=== PATIENT | female | born 1955 | race Caucasian/White ===

== ENCOUNTER → 2017-11-22 | Outpatient (CLI) | payer BC, OTHER ==
[2017-11-22 16:00] LABS: BASOPHILS # (AUTO) 0.05 x10^3/uL (0-0.1); BASOPHILS % (AUTO) 1 % (0-1); EOSINOPHILS # (AUTO) 0.18 x10^3/uL (0-0.4); EOSINOPHILS % (AUTO) 2 % (1-7); LYMPHOCYTES # (AUTO) 2.49 x10^3/uL (1-3.4); LYMPHOCYTES % (AUTO) 32 % (22-44); MD NO; MEAN CORPUSCULAR HEMOGLOBIN 31.4 pg (27.0-34.8); MEAN CORPUSCULAR HGB CONC 34.1 g/dL (32.4-35.8); MEAN PLATELET VOLUME 6.8 fL (7.4-10.4); MONOCYTES # (AUTO) 0.56 x10^3/uL (0.2-0.8); MONOCYTES % (AUTO) 7 % (2-9); NEUTROPHILS # (AUTO) 4.59 x10^3/uL (1.8-6.8); NEUTROPHILS % (AUTO) 58 % (42-75); PLATELET COUNT 328 x10^3/uL (130-400); RED BLOOD COUNT 4.21 x10^6/uL (3.82-5.3); RED CELL DISTRIBUTION WIDTH 13.6 % (9.6-15.2)
[2017-11-22 16:11] LABS: ALBUMIN 3.9 g/dL (3.4-5.0); ANION GAP 7 mmol/L (5-15); CHLORIDE 101 mmol/L (98-107)
[2017-11-22 16:30] LABS: ALANINE AMINOTRANSFERASE 32 U/L (12-78); ALKALINE PHOSPHATASE 101 U/L (45-117); BILIRUBIN,TOTAL 0.8 mg/dL (0.2-1.0); CREATININE 0.86 mg/dL (0.55-1.02); TOTAL PROTEIN 7.4 g/dL (6.4-8.2)
[2017-11-22 16:57] LABS: PROTHROMBIN TIME 10.3 Seconds (9.6-11.5)
== END | disposition home or self-care (01) ==
LOC: STAR 14:44
PROVIDERS: ATTEND Specialist
DX: Z01.811 Encounter for preprocedural respiratory examination (principal); R19.00 Intra-abdominal and pelvic swelling, mass and lump, unspecified site
CPT/HCPCS: 36415; 71046; 80053; 85025; 85610; 85730; 93005

== ENCOUNTER 2017-12-02 07:02 | Inpatient (IN) | payer BC, OTHER ==
[~2017-12-02] VITALS: Ht 160 cm; Wt 88.2 kg
[~2017-12-02 07:02] MED LIST: CYAN25003 PO; LEVO75TA5 PO; MILN25TA PO; MILN50TA PO; MULT1TAB60 PO; POLY17PO5 PO; S-AD200T5 PO; SIMV40TA3 PO; TELM1TAB25 PO; VANIQA TP; VENL150C PO; ZINC50TA40 PO
[2017-12-02] MEDS ORDERED: LIDOCAINE-MPF 1%, 2ML INFIL ONE (08:00)
[2017-12-02] MEDS ORDERED: SCOPOLAMINE PATCH, 1.5MG PATCH.TD72 TD ONE (08:00)
[2017-12-02] MEDS ORDERED: GABAPENTIN 300 MG CAPSULE PO ONE (08:00)
[2017-12-02] MEDS ORDERED: OxyconTIN ER 10 MG TAB.ER PO ONE (08:00)
[2017-12-02] MEDS ORDERED: ACETAMINOPHEN 500 MG TABLET PO ONE (08:00)
[2017-12-02] MEDS: LACTATED RINGERS 1,000 ML IV SCH ×2 (08:29→16:30)
[2017-12-02] MEDS ORDERED: LIDOCAINE/PF 1%, 30ML ONE (09:25)
[2017-12-02] MEDS ORDERED: SUCCINYLCHOLINE 20 MG/ML, 10ML ONE (09:49)
[2017-12-02] MEDS ORDERED: MIDAZOLAM 1 MG/ML, 5ML ONE (09:49)
[2017-12-02] MEDS ORDERED: NEOSTIGMINE 1 MG/ML, 10ML ONE (09:49)
[2017-12-02] MEDS ORDERED: PROPOFOL 10 MG/ML, 20ML ONE (09:49)
[2017-12-02] MEDS ORDERED: FENTANYL PF 100 MCG/2ML ONE (09:49)
[2017-12-02] MEDS ORDERED: DEXAMETHASONE 4 MG/ML, 1ML ONE (09:49)
[2017-12-02] MEDS ORDERED: ONDANSETRON 2MG/ML, 2ML ONE (09:49)
[2017-12-02] MEDS ORDERED: CEFAZOLIN 1,000 MG ONE (09:49)
[2017-12-02] MEDS ORDERED: GLYCOPYRROLATE 0.2MG/1ML, 5ML ONE (09:49)
[2017-12-02] MEDS ORDERED: ROCURONIUM 10MG/ML,5ML ONE (09:49)
[2017-12-02] MEDS ORDERED: hydrALAzine 20 MG/ML, 1ML IV PRN (10:30)
[2017-12-02] MEDS ORDERED: FENTANYL PF 100 MCG/2ML IV PRN (10:30)
[2017-12-02] MEDS ORDERED: ALBUTEROL SULFATE 2.5 MG/3 ML NPPB PRN (10:30)
[2017-12-02] MEDS ORDERED: LABETALOL 5MG/ML, 20ML IV PRN (10:30)
[2017-12-02] MEDS ORDERED: PROMETHAZINE 25 MG/ML, 1ML IV PRN (10:30)
[2017-12-02] MEDS ORDERED: KETOROLAC 30 MG/1 ML IV PRN (10:30)
[2017-12-02] MEDS ORDERED: MEPERIDINE/PF 25MG/0.5ML IVPush PRN (10:30)
[2017-12-02] MEDS ORDERED: ONDANSETRON 2MG/ML, 2ML IVPush PRN (10:30)
[2017-12-02] MEDS ORDERED: METOCLOPRAMIDE 5 MG/ML, 2ML IV PRN (10:30)
[2017-12-02] MEDS ORDERED: OXYcodone 5 MG/5 ML ORAL.SOL UDC PO PRN (10:30)
[2017-12-02] MEDS ORDERED: EPHEDRINE 50 MG/ML, 1ML ONE (12:51)
[2017-12-02 13:02] LABS: BASOPHILS # (AUTO) 0.02 x10^3/uL (0-0.1); BASOPHILS % (AUTO) 0 % (0-1); EOSINOPHILS # (AUTO) 0.06 x10^3/uL (0-0.4); EOSINOPHILS % (AUTO) 1 % (1-7); LYMPHOCYTES # (AUTO) 1.13 x10^3/uL (1-3.4); LYMPHOCYTES % (AUTO) 12 % (22-44); MD NO; MEAN CORPUSCULAR HEMOGLOBIN 31.7 pg (27.0-34.8); MEAN CORPUSCULAR HGB CONC 34.3 g/dL (32.4-35.8); MEAN CORPUSCULAR VOLUME 92.3 fL (80-100); MEAN PLATELET VOLUME 6.6 fL (7.4-10.4); MONOCYTES # (AUTO) 0.34 x10^3/uL (0.2-0.8); MONOCYTES % (AUTO) 4 % (2-9); NEUTROPHILS # (AUTO) 7.78 x10^3/uL (1.8-6.8); NEUTROPHILS % (AUTO) 83 % (42-75); PLATELET COUNT 244 x10^3/uL (130-400); RED BLOOD COUNT 3.07 x10^6/uL (3.82-5.3); RED CELL DISTRIBUTION WIDTH 13.7 % (9.6-15.2)
[2017-12-02] MEDS ORDERED: ALBUMIN HUMAN 5% 500 ML ONE (13:10)
[2017-12-02] MEDS ORDERED: HYDROmorphone 2 MG/ML, 1ML ONE (13:29)
[2017-12-02] MEDS ORDERED: ALBUMIN HUMAN 5% 500 ML IV ONE (13:30)
[2017-12-02] MEDS ORDERED: EPHEDRINE 50 MG/ML, 1ML IVPush PRN (13:30)
[2017-12-02] MEDS: HYDROmorphone 1 MG/ML, 1ML IV PRN ×4 (13:37→14:40)
[2017-12-02] MEDS ORDERED: OXYcodone 5 MG/5 ML ORAL.SOL UDC ONE (13:58)
[2017-12-02 15:25] VITALS: BP 87/51
[2017-12-02 16:24] LABS: ANION GAP 10 mmol/L (5-15); CALCIUM 7.4 mg/dL (8.5-10.1); CHLORIDE 104 mmol/L (98-107); CREATININE 0.67 mg/dL (0.55-1.02)
[2017-12-02 16:46] LABS: BASOPHILS # (AUTO) 0.02 x10^3/uL (0-0.1); BASOPHILS % (AUTO) 0 % (0-1); EOSINOPHILS # (AUTO) 0.01 x10^3/uL (0-0.4); EOSINOPHILS % (AUTO) 0 % (1-7); LYMPHOCYTES # (AUTO) 0.64 x10^3/uL (1-3.4); LYMPHOCYTES % (AUTO) 9 % (22-44); MD SCAN; MEAN CORPUSCULAR HEMOGLOBIN 31.6 pg (27.0-34.8); MEAN CORPUSCULAR HGB CONC 34.3 g/dL (32.4-35.8); MEAN CORPUSCULAR VOLUME 92.3 fL (80-100); MEAN PLATELET VOLUME 6.7 fL (7.4-10.4); MONOCYTES % (AUTO) 7 % (2-9); NEUTROPHILS # (AUTO) 5.65 x10^3/uL (1.8-6.8); NEUTROPHILS % (AUTO) 83 % (42-75); PLATELET COUNT 213 x10^3/uL (130-400); RED BLOOD COUNT 3.11 x10^6/uL (3.82-5.3); RED CELL DISTRIBUTION WIDTH 13.7 % (9.6-15.2)
[2017-12-02] MEDS ORDERED: ONDANSETRON 2MG/ML, 2ML IV PRN (17:30)
[2017-12-02 19:12] VITALS: BP 96/52
[2017-12-02] MEDS: POTASSIUM CHLORIDE 20 MEQ in D5%-0.45% NACL 1,000 ML IV SCH (19:46)
[2017-12-02] MEDS: SODIUM CHLORIDE FLUSH 10ML SYR IVF SCH (19:46)
[2017-12-02] MEDS: VENLAFAXINE 75 MG CAP ER PO SCH (21:33)
[2017-12-03 02:40] VITALS: BP 94/59
[2017-12-03] MEDS: POTASSIUM CHLORIDE 20 MEQ in D5%-0.45% NACL 1,000 ML IV SCH ×3 (02:58→19:45)
[2017-12-03] MEDS: LEVOTHYROXINE 75 MCG TABLET PO SCH (05:04)
[2017-12-03 05:55] LABS: BASOPHILS # (AUTO) 0.02 x10^3/uL (0-0.1); BASOPHILS % (AUTO) 0 % (0-1); EOSINOPHILS # (AUTO) 0.07 x10^3/uL (0-0.4); EOSINOPHILS % (AUTO) 1 % (1-7); LYMPHOCYTES # (AUTO) 1.32 x10^3/uL (1-3.4); LYMPHOCYTES % (AUTO) 24 % (22-44); MD NO; MEAN CORPUSCULAR HEMOGLOBIN 31.6 pg (27.0-34.8); MEAN CORPUSCULAR HGB CONC 33.9 g/dL (32.4-35.8); MEAN CORPUSCULAR VOLUME 93.1 fL (80-100); MEAN PLATELET VOLUME 7.3 fL (7.4-10.4); MONOCYTES # (AUTO) 0.48 x10^3/uL (0.2-0.8); MONOCYTES % (AUTO) 9 % (2-9); NEUTROPHILS # (AUTO) 3.62 x10^3/uL (1.8-6.8); NEUTROPHILS % (AUTO) 66 % (42-75); PLATELET COUNT 217 x10^3/uL (130-400); RED BLOOD COUNT 2.96 x10^6/uL (3.82-5.3); RED CELL DISTRIBUTION WIDTH 13.9 % (9.6-15.2)
[2017-12-03 06:12] LABS: CHLORIDE 101 mmol/L (98-107)
[2017-12-03 06:17] LABS: ANION GAP 9 mmol/L (5-15); CALCIUM 7.6 mg/dL (8.5-10.1); CREATININE 0.65 mg/dL (0.55-1.02)
[2017-12-03] MEDS: KETOROLAC 30 MG/1 ML IV PRN ×3 (07:16→21:25)
[2017-12-03] MEDS: SODIUM CHLORIDE FLUSH 10ML SYR IVF SCH ×2 (07:48→21:25)
[2017-12-03] MEDS: VENLAFAXINE 75 MG CAP ER PO SCH ×2 (07:49→21:25)
[2017-12-03 08:00] VITALS: BP 102/63
[2017-12-03] MEDS: OXYcodone/APAP 7.5/325MG TABLET PO PRN (11:54)
[2017-12-03 13:17] VITALS: BP 97/47
[2017-12-03 19:31] VITALS: BP 137/68
[2017-12-04] MEDS: OXYcodone/APAP 7.5/325MG TABLET PO PRN ×3 (03:04→21:03)
[2017-12-04] MEDS: POTASSIUM CHLORIDE 20 MEQ in D5%-0.45% NACL 1,000 ML IV SCH ×3 (03:50→20:00)
[2017-12-04 04:30] VITALS: BP 157/71
[2017-12-04 04:47] VITALS: BP 118/72
[2017-12-04] MEDS: LEVOTHYROXINE 75 MCG TABLET PO SCH (05:54)
[2017-12-04 07:06] VITALS: BP 135/73
[2017-12-04] MEDS: VENLAFAXINE 75 MG CAP ER PO SCH ×2 (08:49→21:03)
[2017-12-04] MEDS: SODIUM CHLORIDE FLUSH 10ML SYR IVF SCH ×2 (08:49→21:00)
[2017-12-04] MEDS: KETOROLAC 30 MG/1 ML IV PRN (08:49)
[2017-12-04 14:41] VITALS: BP 122/70
[2017-12-04 19:14] VITALS: BP 144/79
[2017-12-05 01:22] VITALS: BP 138/72
[2017-12-05] MEDS: POTASSIUM CHLORIDE 20 MEQ in D5%-0.45% NACL 1,000 ML IV SCH ×2 (04:05→07:49)
[2017-12-05] MEDS: LEVOTHYROXINE 75 MCG TABLET PO SCH (05:32)
[2017-12-05] MEDS: OXYcodone/APAP 7.5/325MG TABLET PO PRN (05:33)
[2017-12-05 06:55] VITALS: BP 115/73
[2017-12-05] MEDS: SODIUM CHLORIDE FLUSH 10ML SYR IVF SCH (07:48)
[2017-12-05] MEDS: VENLAFAXINE 75 MG CAP ER PO SCH (07:48)
[2017-12-05] MEDS ORDERED: OXYC-306 PO (09:19)
[2017-12-05] MEDS ORDERED: ONDA4TAB7 PO (09:20)
== END 2017-12-05 13:30 | disposition home or self-care (01) | DRG 743 ==
LOC: OUT 07:02 → 3NW 15:33 → OUT 15:34 → DCLOUNGE 12-05 13:20
PROVIDERS: ADMIT Specialist; ATTEND Specialist
PROC: 0UB20ZZ Excision of Bilateral Ovaries, Open Approach (ICD-10-PCS; 2017-12-02)
PROC: 0UB70ZZ Excision of Bilateral Fallopian Tubes, Open Approach (ICD-10-PCS; 2017-12-02)
PROC: 0UT90ZZ Resection of Uterus, Open Approach (ICD-10-PCS; 2017-12-02)
PROC: 8E0W0CZ Robotic Assisted Procedure of Trunk Region, Open Approach (ICD-10-PCS; 2017-12-02)
PROC: 0DBV0ZZ Excision of Mesentery, Open Approach (ICD-10-PCS; 2017-12-02)
PROC: 0UJD4ZZ Inspection of Uterus and Cervix, Percutaneous Endoscopic Approach (ICD-10-PCS; principal; 2017-12-02 10:00)
DX: D25.9 Leiomyoma of uterus, unspecified (principal); Z53.31 Laparoscopic surgical procedure converted to open procedure; R19.00 Intra-abdominal and pelvic swelling, mass and lump, unspecified site
CPT/HCPCS: 36415; 74018; 80048; 85025; 86850; 86900; 88305; 88307; 88331; 88341; 88342; J0690; J1100; J1170; J1885; J2250; J2405; J2704; J2710; J3010; J3480; J3490; P9045; C1765; G0461; J0330; J7120